=== PATIENT | female | born 1990 | race Caucasian/White ===

== ENCOUNTER 2016-05-21 14:57 | Emergency (ER) | payer OTHER ==
[~2016-05-21] VITALS: Ht 167.6 cm; Wt 90.7 kg
[~2016-05-21 14:57] MED LIST: AMOXICILLIN875 M1 PO; AMOXICILLIN875 MG PO; AMOXIL500 MG PO; AUGMENTIN 875 M1 TAB PO; BACTRIM DS 8001 TAB PO; DOLOBID500 MG PO; FLEXERIL10 MG PO; IBUPROFEN600 M1 PO; LYRICA100 M1 PO; LYRICA50 MG PO; MEDROL DOSEPAK1 PAC PO; MOBIC15 M1 PO; MOBIC15 MG PO; MOTRIN800 MG PO; NAPROSYN 500 M500 MG PO; NAPROXEN500 MG PO; NEURONTIN100 MG PO; PERCOCET 325 MG1 TA2 PO; PREDNISONE10 MG PO; TOPIRAMATE25 MG PO; TRAMADOL HCL50 M1 PO; TRAMADOL50 MG PO; TREXIMET 500 MG1 TAB PO; TREXIMET 85-501 EACH PO; ULTRAM(MONOGRAP50 MG PO; ULTRAM50 M1 PO; VALIUM2 M1 PO; VICODIN5-300 PO; ZOFRAN4 M1 SL
[2016-05-21 15:07] VITALS: BP 150/79
[2016-05-21] MEDS ORDERED: PERCOCET 5-3251 EACH PO (15:52)
--- NOTE | 2016-05-21 15:53 | ED UPPER/LOWER EXTREMITY COMPL ---
History of Present Illness General Chief Complaint: Fall Stated Complaint: FALL BILATERAL KNEE PAIN Source: patient, old records Exam Limitations: no limitations Vital Signs & Intake/Output Vital Signs & Intake/Output Vital Signs Date Time Temp Pulse Resp B/P Pulse O2 O2 Flow FiO2 Ox Delivery Rate 05/21 1507 98.7 110 20 150/79 98 Room Air Allergies Coded Allergies: latex (Severe, RASH, HIVES 05/21/16) Reconcile Medications Amoxicillin 875 MG TABLET 1 TAB PO BID sinusitis Diazepam (Valium) 2 MG TABLET 1 TAB PO BID PRN breakthrough pain Ibuprofen 600 MG TABLET 1 TAB PO Q6PRN PRN pain with food Meloxicam (Mobic) 15 MG TABLET 1 TAB PO DAILY PRN pain Oxycodone HCl/Acetaminophen (Percocet 5-325 MG Tablet) 5 MG-325 MG TABLET 1 TAB PO TID PRN pain Pregabalin (Lyrica) 100 MG CAPSULE 1 CAP PO TID NERVE PAIN (Reported) Sumatriptan Succ/Naproxen Sod (Treximet 85-500 MG Tablet) (Unknown Strength) TABLET (Unknown Dose) PO AD PRN MIGRAINES (Reported) Tramadol HCl 50 MG TABLET 2 TAB PO TID PRN PAIN (Reported) Tramadol HCl (Ultram) 50 MG TABLET 1-2 TAB PO Q6PRN PRN severe pain Triage Note: TRIAGE: PT TO ER C/C BILATERAL KNEE PAIN (R > L) S/P FALL LAST NIGHT. STATES SHE TRIPPED OVER SOMETHING IN HOTEL BATHROOM LANDING ON HER KNEES AND STATES "FELT LIKE IT WAS CEMENT". ALSO HIT HEAD ON DOOR "BUT MY HEAD IS FINE". TAKES PRESCRIPTION TRAMADOL AND HAS ALSO TRIED IBUPROFEN WITH NO REAL RELIEF NOTED. ALSO HAS TRIED REST, ICE AND ELEVATION. Triage Nurses Notes Reviewed? yes : No Patient currently breastfeeds: No HPI: 25-year-old female with chronic back pain on tramadol and the Lyrica presents with bilateral knee pain right greater than left after she had a mechanical fall yesterday when she tripped in her bathroom falling down on bilateral bent knees. She has had pain swelling and ecchymosis to the patellar regions on both sides, it is worse with palpation and with walking. It is moderate to severe and throbbing. No other injuries. This occurred yesterday afternoon. Her usual pain medication of tramadol K is not helping her. Past History Travel History Traveled to [place] past 21 day No Medical History Any Pertinent Medical History? 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 No Review of Systems Review of Systems Constitutional: Reports: see HPI. EENTM: Reports: no symptoms. Respiratory: Reports: no symptoms. Cardiovascular: Reports: no symptoms. Gastrointestinal/Abdominal: Reports: no symptoms. Genitourinary: Reports: no symptoms. Musculoskeletal: Reports: see HPI, back pain. Skin: Reports: no symptoms. Neurological/Psychological: Reports: no symptoms. Hematologic/Endocrine: Reports: no symptoms. Immunological: Reports: no symptoms. All Other Systems: Reviewed and Negative Physical Exam Physical Exam General Appearance: well developed/nourished Comments: Well-developed well-nourished no apparent distress. HEENT: Atraumatic, extraocular motion intact Neck: Supple, no lymphadenopathy Back: Nontender Respiratory: No respiratory distress Extremities: No edema, full range of motion Neuro: Alert and oriented x3 Psych: Mood affect normal, normal memory normal judgment. Skin: Warm and dry, no rash on exposed skin biLateral knees with mild swelling and ecchymosis noted to the anterior patellar region and small superficial abrasions. Patient able to straight leg. Use bilaterally without difficulty, range of motion is full with pain on flexion past 90 and both knees. There is no instability with Rodney anterior or posterior draw, no violation valgus instability bilaterally. Neurovascularly intact. She walks with minimal limp. Progress Differential Diagnosis: contusion, dislocation, fracture, tendon injury Plan of Care: Patient ambulating, able to straight leg raise, no fracture suspected, did not feel so x-rays are required at this time, she has contusions to both her knees, fracture is highly unlikely and this was discussed with her. Eugene wrap for applied to both knees by myself and she'll be given pain medication and recommend rest ice compression and elevation. Follow-up with her doctor next week if no better Departure Departure Disposition: HOME OR SELF CARE Condition: Stable Clinical Impression Primary Impression: Contusion of knee, left Qualifiers: Encounter type: initial encounter Qualified Code: S80.02XA - Contusion of left knee, initial encounter Secondary Impressions: Contusion of knee, right Qualifiers: Encounter type: initial encounter Qualified Code: S80.01XA - Contusion of right knee, initial encounter Referrals: SHELLY DEJESUS MD (PCP/Family) Additional Instructions: Rest, ice, compression (eugene wrap), elevation. take Percocet as needed for pain Gradual return to activity as tolerated. Follow-up with orthopedist in one to 2 weeks if no better. Departure Forms: Customer Survey General Discharge Information Prescriptions: Current Visit Scripts Oxycodone HCl/Acetaminophen (Percocet 5-325 MG Tablet) 1 TAB PO TID PRN pain #10 TAB
== END 2016-05-21 16:18 ==
LOC: ERH 14:57
DX: S80.02XA Contusion of left knee, initial encounter (principal); S80.01XA Contusion of right knee, initial encounter; W01.0XXA Fall on same level from slipping, tripping and stumbling without subsequent striking against object, initial encounter

== ENCOUNTER 2016-10-01 18:23 | Emergency (ER) | payer OTHER ==
[~2016-10-01] VITALS: Ht 167.6 cm; Wt 89.8 kg
[~2016-10-01 18:23] MED LIST changes: +PERCOCET 5-3251 EACH PO
--- NOTE | 2016-10-01 20:05 | ED GENERAL ADULT ---
See Addendum History of Present Illness General Chief Complaint: General Adult Stated Complaint: LT SIDE CHIN,JAW AND EAR PAIN Source: patient Exam Limitations: no limitations Vital Signs & Intake/Output Vital Signs & Intake/Output Vital Signs Date Time Temp Pulse Resp B/P B/P Pulse O2 O2 Flow FiO2 Mean Ox Delivery Rate 10/01 1827 97.6 98 16 133/90 97 Room Air Allergies Coded Allergies: latex (Severe, RASH, HIVES 05/21/16) Reconcile Medications Amoxicillin 875 MG TABLET 1 TAB PO BID sinusitis Diazepam (Valium) 2 MG TABLET 1 TAB PO BID PRN breakthrough pain Ibuprofen 600 MG TABLET 1 TAB PO Q6PRN PRN pain with food Meloxicam (Mobic) 15 MG TABLET 1 TAB PO DAILY PRN pain Oxycodone HCl/Acetaminophen (Percocet 5-325 MG Tablet) 5 MG-325 MG TABLET 1 TAB PO TID PRN pain Pregabalin (Lyrica) 100 MG CAPSULE 1 CAP PO TID NERVE PAIN (Reported) Sumatriptan Succ/Naproxen Sod (Treximet 85-500 MG Tablet) (Unknown Strength) TABLET (Unknown Dose) PO AD PRN MIGRAINES (Reported) Tramadol HCl 50 MG TABLET 2 TAB PO TID PRN PAIN (Reported) Tramadol HCl (Ultram) 50 MG TABLET 1-2 TAB PO Q6PRN PRN severe pain Triage Note: PT STATES SHE IS HAVING PAIN IN HER JAW STATES HER CHIN IS SWOLLEN. PT STATES UNDER HER CHIN HURTS WHEN SHE SWOLLOWS Triage Nurses Notes Reviewed? yes : No Patient currently breastfeeds: No HPI: Patient presents for evaluation of left chin pain that began about 1-2 days ago, gradual in onset. Since then the pain has begun to spread to the angle of the jaw and towards the left ear along with soft tissue swelling and tenderness. She has tried cool compresses and tried Motrin one tablet every 2 hours without improvement. She does have some discomfort with swallowing but otherwise denies fever or cold symptoms or trauma. The pain has been constant since onset but does fluctuate in intensity. Nothing seems to make the pain feel better. (RUTH MCDOWELL,ELDON Garcia) Past History Travel History Traveled to [place] past 21 day No Medical History Any Pertinent Medical History? 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 No (ELDON GEARRD MD) Review of Systems Review of Systems Constitutional: Reports: no symptoms. EENTM: Reports: see HPI. Respiratory: Reports: no symptoms. Cardiovascular: Reports: no symptoms. GI: Reports: no symptoms. Genitourinary: Reports: no symptoms. Musculoskeletal: Reports: no symptoms. Skin: Reports: no symptoms. Neurological/Psychological: Reports: no symptoms. Hematologic/Endocrine: Reports: no symptoms. Immunologic/Allergic: Reports: no symptoms. All Other Systems: Reviewed and Negative (ELDON GERARD MD) Physical Exam Physical Exam General Appearance: see below Comments: Gen.: Well-nourished, well-developed, no acute respiratory distress. Head: Normocephalic, atraumatic. Eyes: Normal inspection bilaterally Ears: Normal inspection bilaterally, left TM normal, left canal normal, no periauricular lymphadenopathy Nose: Normal inspection Throat/mouth : Moist mucosa, poor dentition with scattered missing teeth Neck: Supple, full range of motion, no goiter, no lymphadenopathy Lungs: Quiet respirations Back: Normal range of motion Extremities: Normal range of motion grossly, equal radial pulses, no cyanosis clubbing or edema Neurologic: Cranial nerves grossly intact, speech is clear Skin: warm and dry Psychiatric: Calm, cooperative, no apparent delusions or hallucinations (RUTH MCDOWELL,ELDON Garcia) Core Measures ACS in differential dx? No CVA/TIA Diagnosis: No Severe Sepsis Present: No Septic Shock Present: No (ELDON DAWKINS DO) Progress Differential Diagnoses I considered the following diagnoses in my evaluation of the patient: Pharyngitis, dental abscess, Tunde's angina, cellulitis Plan of Care: Orders Procedure Date/time Status CT NECK W IV CONTRAST 10/01 1901 Active Comments: 10/01/2016 7:02:41 PM patient signed out to Dr. Dawkins at [facility] cell [facility]. (RUTH MCDOWELL,ELDON Garcia) Initial ED EKG: none (ELDON DAWKINS DO) Departure Departure Condition: Stable Referrals: SHELLY DEJESUS MD (PCP/Family) Departure Forms: Customer Survey General Discharge Information (RUTH MCDOWELL,ELDON Garcia) Departure Disposition: STILL A PATIENT Clinical Impression Primary Impression: Jaw pain Comments 10/01/16 8 PM The patient was signed out to me by Dr. Gerard. She is pending CT scan. The patient's CT was negative. She was instructed to follow-up with her doctor on Monday and continue her pain medication as directed. Her discharge diagnosis was left jaw pain and probable temporomandibular joint syndrome (ELDON DAWKINS DO) Critical Care Note Critical Care Note Critical Care Time: non-applicable (ELDON DAWKINS DO)
--- NOTE | 2016-10-01 21:54 | CT SCAN REPORT ---
EXAMINATION: CT NECK WITH CONTRAST CLINICAL INFORMATION: Fullness of left side of face. Left facial and neck pain. COMPARISON: None TECHNIQUE: Multidetector helical imaging was performed in the axial plane following intravenous administration of 93 mL of Optiray 320. DLP: 572.3 mGy-cm FINDINGS: The parotid glands are homogeneous in attenuation. No periparotid inflammatory changes are seen. No sialolithiasis is identified. Small intraparotid lymph nodes are noted bilaterally without pathologic enlargement. The jugulodigastric high IIA lymph nodes are slightly prominent bilaterally. There is symmetric prominence of the palatine tonsils. No peritonsillar fluid collection is seen. The oral cavity appears normal. The larynx is unremarkable. The thyroid gland is normal. The submandibular glands appear normal. No soft tissue fluid collections are seen. No retropharyngeal collection is identified. There are scattered internal jugular chain lymph nodes present bilaterally without pathologic enlargement. The carotid sheath vasculature opacifies normally. The temporomandibular joints are normal. There is a moderate rightward nasal septal deviation. The paranasal sinuses and mastoid air cells are well aerated. The imaged mediastinum is unremarkable. The visualized portions of the lungs are fairly well aerated with minimal subsegmental atelectatic changes. No periodontal or periapical lucencies are seen. The visualized portions of the brain demonstrate no acute abnormality. IMPRESSION: No acute process. No parotid inflammatory changes or soft tissue mass. Mildly prominent bilateral jugulodigastric lymph nodes are nonspecific and may be reactive. Otherwise, no pathologically enlarged cervical lymph nodes identified.
[2016-10-01 22:15] VITALS: BP 132/92
[2016-10-02] MEDS ORDERED: PRAZOSIN HCL1 M1 PO (02:06)
[2016-10-02] MEDS ORDERED: TEGRETOL200 M1 PO (02:06)
== END 2016-10-02 02:08 ==
LOC: ERH 18:23
DX: R68.84 Jaw pain (principal)